=== PATIENT | female | born 1980 | race Caucasian/White ===

== ENCOUNTER 2018-11-19 14:40 | Emergency (ER) | payer OTHER ==
[2018-11-19] MEDS ORDERED: TDAP ADULT 0.5 ML INJ (BOOSTRIX) IM ONE (15:29)
--- NOTE | 2018-11-19 16:00 | EDPHY ---
H & P Stated Complaint: slipped yesterday hit head no loc -open forehead lac Time Seen by Provider: 11/19/18 15:29 HPI/ROS: HPI: This is a 38-year-old female who presents with Chief Complaint: slipped yesterday hit head no loc -open forehead lac Location: Forehead Quality: Injury Duration: 24 hr ago Signs and Symptoms: No bleeding, no radiation, no numbness, no weakness, no tingling, no incontinence, no decreased range of motion, no swelling, no pain, no fever Timing: Acute Severity: Moderate Context: Patient reports that she was hiking yesterday around 5:00 p.m. When she slipped on ice and fell forward hitting her head on the ground. She reports that she noticed bleeding from the area but it quickly stopped with direct pressure. She was ambulatory at the scene. Denies LOC/neck pain/ dizziness/nausea/vomiting/amnesia. She reports that she had a mild headache that quickly resolved over the next 30 min. She went home and took a shower. She went to work today and thought more about it and came to the emergency room for further evaluation. Unsure of tetanus status. Not on any blood thinners. Modifying Factors: Direct pressure, wound care Comment: ROS: A comprehensive 10 system review of systems is otherwise negative aside from elements mentioned in the history of present illness. MEDICAL/SURGICAL/SOCIAL HISTORY: Medical history: Generally healthy. Does not take any regular medications. LMP 1-2 weeks ago. Surgical history: Denies Social history: Employed. Nonsmoker. CONSTITUTIONAL: Extremely polite and cooperative middle-aged white female, awake and alert, no obvious distress HEENT: 8 in, deep, simple, horizontal laceration frontal scalp near the hairline and normocephalic. NECK: supple, no midline tenderness, flexion 45 degrees, extension 45 degrees, right and left lateral flexion 45 degrees. No meningismus. Cardiovascular: Normal S1/S2, regular rate, regular rhythm, without murmur rub or gallop. PULMONARY/CHEST: Symmetrical and nontender. no crepitus. Clear to auscultation bilaterally. Good air movement. No accessory muscle usage. ABDOMEN: Soft, nondistended, nontender, no ecchymosis. PELVIC: no pain with rocking; bilateral hips flexion 125 degrees, extension 30 degrees, with no pain internal rotation and no pain external rotation. BACK: No midline tenderness, no paraspinous spasm, deep tendon reflexes 2/2, no pain with straight leg raise, No foot drop. Achilles reflexes are equal bilaterally. Able to walk on heels and toes without difficulty. EXTREMITIES: 2/2 pulses, strength 5/5, DIP/PIP/MCP flexion/extension intact with good light touch sensation. no deformities, no clubbing, no cyanosis or edema. NEUROLOGICAL: no focal neuro deficits. GCS 15. Light touch sensation intact. SKIN: Warm and dry, no erythema. no rash. Good capillary refill. Source: Patient Exam Limitations: No limitations - Personal History LMP (Females 10-55): 8-14 Days Ago Current Tetanus/Diphtheria Vaccine: Unsure Current Tetanus Diphtheria and Acellular Pertussis (TDAP): Unsure - Medical/Surgical History Hx Asthma: No Hx Chronic Respiratory Disease: No Hx Diabetes: No Hx Cardiac Disease: No Hx Renal Disease: No Hx Cirrhosis: No Hx Alcoholism: No Hx HIV/AIDS: No Hx Splenectomy or Spleen Trauma: No Other PMH: appy - Social History Smoking Status: Never smoked Constitutional: Initial Vital Signs Temperature (C) 36.5 C 11/19/18 14:52 Heart Rate 78 11/19/18 14:52 Respiratory Rate 16 11/19/18 14:52 Blood Pressure 125/89 H 11/19/18 14:52 O2 Sat (%) 98 11/19/18 14:52 O2 Delivery Mode Room Air Allergies/Adverse Reactions: ampicillin Allergy (Verified 11/19/18 14:51) Penicillins Allergy (Verified 11/19/18 14:50) Home Medications: Medication Instructions Recorded Cephalexin [Keflex (*)] 500 mg PO TID #21 cap 11/19/18 Medical Decision Making Procedures: Procedure: Laceration repair. Verbal consent was obtained from the patient. The 8 in, simple, deep laceration on the frontal scalp was anesthetized in the usual fashion using 6 mL of 1% lidocaine with epinephrine. The wound was irrigated, draped and explored to its base with a gloved finger. There were no deep structures involved. No tendon injury was identified. The wound was repaired with #7, luciana. Good hemostasis was achieved and patient tolerated procedure well. The procedure was performed by myself. ED Course/Re-evaluation: Wound is 24 hr but deep will approximate with luciana and placed on antibiotic prophylaxis of Keflex. Based on nexus protocol head CT and cervical CT imaging not indicated. No LOC. No neurological deficits. No signs of concussion. Laceration repaired with #7 luciana Verbal and written wound care instructions provided. No signs of neurovascular compromise/tenting of skin/compartment syndrome/ extremities and joints examined above and below area of concern and are neurovascularly intact. This patient was seen under the supervision of my secondary supervising physician. I evaluated care for this patient independently. Differential Diagnosis: Head injury including but not limited to concussion, skull fracture, intraparenchymal contusion, subarachnoid, subdural and epidural hematoma. Departure - Departure Disposition: Home, Routine, Self-Care Clinical Impression: Laceration of skin of scalp Qualifiers: Encounter type: initial encounter Qualified Code(s): S01.01XA - Laceration without foreign body of scalp, initial encounter Closed head injury without concussion Qualifiers: Encounter type: initial encounter Qualified Code(s): S09.90XA - Unspecified injury of head, initial encounter Condition: Good Instructions: Laceration Without Closure (ED), Facial Laceration (ED) Additional Instructions: You sustained a closed head injury with scalp laceration. Take Tylenol 650 mg every 4 hours and/or Ibuprofen 600 mg every 8 hours with food as needed for pain/headache. Take antibiotic as directed. Consume a minimum of 8-10 glasses of water or electrolyte fluid replacement drinks that include Gatorade, Powerade, Pedialyte. Please follow-up with primary care provider in 5-7 days. Return to the ER immediately if you have progressive headaches, neurologic deficits, gait abnormality, visual disturbance, slurred speech, or any other symptom that concerns you. Wound Care Follow-Up: Removal of luciana in [ 7 ] days. Staple removal is complimentary in uncomplicated cases. Infection or abnormal findings would require reevaluation by the MD. In that case, you may be billed. Referrals: [facility],. [Clinic] - As per Instructions Prescriptions: Cephalexin [Keflex (*)] 500 mg PO TID #21 cap
[2018-11-19 17:31] VITALS: BP 117/74
== END 2018-11-19 17:31 | disposition home or self-care (01) ==
PROC: 0HQ0XZZ Repair Scalp Skin, External Approach (ICD-10-PCS; principal; 2018-11-19)
DX: S01.01XA Laceration without foreign body of scalp, initial encounter (principal); Z23 Encounter for immunization; W01.198A Fall on same level from slipping, tripping and stumbling with subsequent striking against other object, initial encounter; Y93.01 Activity, walking, marching and hiking; Y92.9 Unspecified place or not applicable; Y99.9 Unspecified external cause status